=== PATIENT | female | born 1970 | race Hispanic/Latino ===

== ENCOUNTER 2018-01-12 12:56 | Outpatient (CLI) | payer BC | END 2018-01-12 12:57 | disposition home or self-care (01) | LOC: BICMAMMO 12:56 | PROVIDERS: ATTEND Family Medicine | DX: Z12.31 Encounter for screening mammogram for malignant neoplasm of breast (principal) | CPT/HCPCS: 77063; 77067 ==

== ENCOUNTER 2019-01-15 08:53 | Outpatient (CLI) | payer BC ==
--- NOTE | 2019-01-15 09:27 | MMO ---
Bilateral MAMMO Bilat Screen [facility]. CLINICAL HISTORY: Patient is 48 years old and is seen for screening. The patient has no family history of breast cancer. The patient has no personal history of cancer. VIEWS: The views performed were: bilateral craniocaudal with tomosynthesis and bilateral mediolateral oblique with tomosynthesis. FILMS COMPARED: The present examination has been compared to prior imaging studies performed at [facility] on 01/18/2013, 11/18/2014, 11/27/2015, 12/17/2016 and 01/12/2018. MAMMOGRAM FINDINGS: There are scattered fibroglandular densities. There are no suspicious masses, suspicious calcifications, or new areas of architectural distortion. IMPRESSION: THERE IS NO MAMMOGRAPHIC EVIDENCE OF MALIGNANCY. A ROUTINE FOLLOW-UP MAMMOGRAM IN 1 YEAR IS RECOMMENDED. THE RESULTS OF THIS EXAM WERE SENT TO THE PATIENT. ACR BI-RADS Category 1 - Negative MAMMOGRAPHY NOTE: 1. A negative mammogram report should not delay a biopsy if a dominant of clinically suspicious mass is present. 2. Approximately 10% to 15% of breast cancers are not detected by mammography. 3. Adenosis and dense breasts may obscure an underlying neoplasm.
--- NOTE | 2019-01-15 10:22 | BD ---
DEXA BONE DENSITOMETRY: (Dual energy X-ray Absorptiometry) DATE: 01/15/2019. HISTORY: A 48-year-old female for age-related postmenopausal osteoporosis screening examination. FINDINGS: Height 62 inches. Weight 177 pounds. Age of menopause 35 years. The bone mineral density (BMD) is given in grams per square centimeter (g/cm2): LUMBAR SPINE: BMD(g/cm2) T-score Z-score L1: 1.260 2.5 3.1 L2: 1.258 2.1 2.9 L3: 1.297 1.9 2.7 L4: 1.215 1.4 2.2 Total: 1.254 1.9 2.7 HIP: Femoral neck: 1.083 2.1 2.5 Total: 1.179 1.9 2.1 IMPRESSION: 1) The mean bone mineral density of the lumbar spine is normal. Fracture risk is not increased 2) The bone mineral density of the femoral neck is normal. Fracture risk is not increased. VEENA Valderrama POS: [id number]
== END 2019-01-15 08:54 | disposition home or self-care (01) ==
LOC: BICMAMMO 08:53
PROVIDERS: ATTEND Family Medicine
DX: Z12.31 Encounter for screening mammogram for malignant neoplasm of breast (principal); M85.9 Disorder of bone density and structure, unspecified
CPT/HCPCS: 77063; 77067; 77080

== ENCOUNTER 2020-11-17 08:32 | Outpatient (CLI) | payer BC | END 2020-11-17 08:33 | disposition home or self-care (01) | LOC: BICMAMMO 08:32 | PROVIDERS: ATTEND Family Medicine | DX: Z12.31 Encounter for screening mammogram for malignant neoplasm of breast (principal) | CPT/HCPCS: 77063; 77067 ==

== ENCOUNTER 2021-05-25 13:08 | Outpatient (CLI) | payer BC | END 2021-05-25 13:09 | disposition home or self-care (01) | LOC: BICRAD 13:08 | PROVIDERS: ATTEND Family Medicine | DX: M79.642 Pain in left hand (principal); M89.49 Other hypertrophic osteoarthropathy, multiple sites ==

== ENCOUNTER 2022-02-20 09:30 | Outpatient (CLI) | payer BC | END 2022-02-20 09:31 | disposition home or self-care (01) | LOC: BICMAMMO 09:30 | PROVIDERS: ATTEND Family Medicine | DX: Z12.31 Encounter for screening mammogram for malignant neoplasm of breast (principal) | CPT/HCPCS: 77063; 77067 ==

== ENCOUNTER 2024-08-19 14:31 | Outpatient (CLI) | payer BC | END 2024-08-19 14:32 | disposition home or self-care (01) | LOC: BICMAMMO 14:31 | PROVIDERS: ATTEND Family Medicine | DX: L72.3 Sebaceous cyst (principal); N60.01 Solitary cyst of right breast | CPT/HCPCS: 77066; G0279 ==